=== PATIENT | female | born 1985 | race Caucasian/White ===

== ENCOUNTER 2016-09-21 22:16 | Emergency (ER) | payer BC, OTHER ==
[~2016-09-21] VITALS: Ht 160 cm; Wt 87.1 kg
[~2016-09-21 22:16] MED LIST: PRENTAB26 PO
[2016-09-21 22:19] VITALS: TEMP 36.7; Ht 160 cm; Wt 87.1 kg
[2016-09-21] MEDS ORDERED: ACETAMINOPHEN 500 MG TAB PO STA (22:30)
[2016-09-21] MEDS ORDERED: IBUPROFEN 600 MG TAB PO STA (22:30)
--- NOTE | 2016-09-21 23:01 | DIAGNOSTIC IMAGING REPORT ---
LEFT SHOULDER 3 VIEWS HISTORY: left shoulder injury COMPARISON: None. FINDINGS: There is no fracture or dislocation. Soft tissues are unremarkable. No radiopaque foreign bodies. IMPRESSION: No fractures. Electronically signed by: Jeff Kaplan M.D. 09/21/2016 11:00 PM Dictated Date/Time: 09/21/2016 10:58 PM
--- NOTE | 2016-09-21 23:09 | EMERGENCY ROOM VISIT NOTE ---
ED Visit Note First contact with patient: 22:25 CHIEF COMPLAINT: Shoulder pain HISTORY OF PRESENT ILLNESS: This 31 year old female patient presents to the emergency department complaining of pain in the left shoulder that began today. The patient is employed at a local [employer], and states that a resident was going from a seated to a standing position. The resident began to fall backwards, and the patient was able to prevent injury to the resident. In doing so she felt a pulling and tightness into her left shoulder that has slowly worsened over the past several hours. There is some limitation of motion of the arm because of the pain. The pain is moderate, constant and increases with motion of the hand and arm. The patient states the pain is dull and 7/10. The patient has taken nothing for relief of the pain. No previous significant previous shoulder disease or injury. No numbness or tingling. No neck and no back pain. No chest pain or shortness of breath. No abdominal pain or nausea/vomiting. No cough. REVIEW OF SYSTEMS: A 6 system review of systems was performed with positives and pertinent negatives in the HPI. ALLERGIES: Penicillin MEDICATIONS: See EMR PMH: See EMR SOCIAL HISTORY: Lives locally and employed PHYSICAL EXAM: Vital Signs: Reviewed nurse's notes, vital signs stable. GENERAL : White female, in no acute distress, but appears to be in pain, well-developed , well-nourished. MUSCULOSKELETAL: There is no deformity of the left shoulder and there are no cassie deformities noted. There is no sulcus sign. There is tenderness over the supraspinatus into the lateral deltoid. The patient's range of motion is limited to abduction and elevation above the head. Supraspinatus strength 3/5. There is no clavicle tenderness. No tenderness of the humerus, elbow, wrist, or hand. Early Childhood Associate strength 5/5. Radial pulse 2+. NECK: No tenderness to palpation over the cervical spine. HEART: Regular rate and rhythm without murmurs gallops or rubs. LUNGS: Clear to auscultation bilaterally without wheezes, rales or rhonchi. No accessory muscle use. No retractions. NEURO: The patient is alert and oriented to person, place, and time. Normal sensation to light and sharp touch. Capillary refill less than 2 seconds. LEFT SHOULDER 3 VIEWS HISTORY: left shoulder injury COMPARISON: None. FINDINGS: There is no fracture or dislocation. Soft tissues are unremarkable. No radiopaque foreign bodies. IMPRESSION: No fractures. EMERGENCY DEPARTMENT COURSE: Physical exam and history were performed. Nursing notes and EMR were reviewed. The patient appears to have injured her left shoulder while at work's evening. X-rays were obtained and does not show evidence of acute fracture or dislocation. I suspect a sprain/strain type of injury. Her injury occurred at work, and I recommended that she follow with Workmen's Compensation for further care and management. She will be given a home pack of Vicodin and instructed on conservative measures otherwise. She was invited back to the emergency department with any new, worsening, or concerning symptoms. Problem List Medical Problems: (1) Migraine Status: Chronic Current/Historical Medications No Active Prescriptions or Reported Meds Allergies Coded Allergies: Penicillins (Verified Allergy, Unknown, 03/22/16) Vital Signs Date Time Temp Pulse Resp B/P (MAP) Pulse Ox O2 Delivery O2 Flow Rate FiO2 09/21/16 22:19 36.7 76 18 144/83 100 Room Air Medications Administered Medications (Trade) Dose Ordered Sig/Ishan Route Start Time Stop Time Status Last Admin Dose Admin Acetaminophen (Tylenol Tab) 1,000 mg NOW STAT PO 09/21/16 22:30 09/21/16 22:31 DC 09/21/16 22:41 1,000 MG Ibuprofen (Motrin Tab) 600 mg NOW STAT PO 09/21/16 22:30 09/21/16 22:31 DC 09/21/16 22:41 600 MG Departure Information Impression Primary Impression: Injury of left shoulder Dispostion Home / Self-Care Condition GOOD Prescriptions No Active Prescriptions or Reported Meds Forms HOME CARE DOCUMENTATION FORM, IMPORTANT VISIT INFORMATION Patient Instructions [facility] Additional Instructions You were seen and evaluated today on an emergency basis only. This is not a substitute for, or an effort to provide, complete comprehensive medical care. It is not possible to recognize and treat all injuries or illnesses in a single emergency department visit. For this reason it is recommended that you followup with Workmen's Compensation this week for ongoing care and evaluation. For baseline pain relief you may alternate ibuprofen and acetaminophen every 4 hours for pain control. Take 600 mg ibuprofen (Advil) and then 4 hours later take 1000 mg acetaminophen (Tylenol). Do not take more than 3000 mg acetaminophen in a single day. [place] (hydrocodone/acetaminophen) 5/325 mg every 6 hours as needed for worsening breakthrough pain. Do not drink or drive on [place]. This medication will likely make you tired. Do not take [place] and Tylenol at the same time as both contain acetaminophen. [place] may cause constipation. You may wish to take an [id number] stool softener like Colace if this occurs. You are welcome to return to the emergency department anytime with new, worsening, or concerning symptoms.
[2016-09-21] MEDS ORDERED: NORCO 5/325MG HOME PACK PO ONE (23:15)
[2016-09-21 23:25] VITALS: BP 121/86; PULSE 57; O2SAT 100
[2017-02-02] MEDS ORDERED: AZIT-57 PO (23:05)
== END 2016-09-21 23:26 | disposition home or self-care (01) ==
LOC: C.EDB 22:17 → C.EDA 23:26
DX: S49.92XA Unspecified injury of left shoulder and upper arm, initial encounter (principal); X50.1XXA Overexertion from prolonged static or awkward postures, initial encounter; Y92.129 Unspecified place in nursing home as the place of occurrence of the external cause; Y99.0 Civilian activity done for income or pay

== ENCOUNTER 2017-02-02 18:57 | Emergency (ER) | payer BC, OTHER ==
[~2017-02-02] VITALS: Ht 160 cm; Wt 85.4 kg
[2017-02-02 19:11] VITALS: TEMP 38.1; Ht 160 cm; Wt 85.4 kg
[2017-02-02] MEDS ORDERED: SODIUM CHLORIDE 0.9% 1000ML 2,000 ML IV STA (19:28)
[2017-02-02] MEDS ORDERED: KETOROLAC TROMETHAMINE 30 MG/ML VIAL IV STA (19:28)
[2017-02-02 20:12] VITALS: O2SAT 99
[2017-02-02 20:30] LABS: PREG INTERNAL NEGATIVE QC NEG CLEAR BACKGROUND; PREG INTERNAL POSITIVE QC POS CONTROL LINE
[2017-02-02 20:32] LABS: URINE APPEARANCE CLOUDY (CLEAR); URINE COLOR DK YELLOW; URINE EPITHELIAL CELL AUTO >30 /lpf (0-5); URINE NITRITE NEG (NEG); URINE SPECIFIC GRAVITY 1.033 (1.000-1.030); UROBILINOGEN NEG (NEG)
[2017-02-02 20:37] LABS: MANUAL MICROSCOPIC REQUIRED? NO; REVIEW REQ? YES; URINE BILIRUBIN NEG (NEG)
[2017-02-02 20:44] LABS: URINE MUCUS PRESENT (NONE PRSENT)
[2017-02-02 21:06] LABS: HEMATOCRIT 31.6 % (37-47); MEAN CELL VOLUME 74.7 fL (80-100); MEAN CORPUSCULAR HEMOGLOBIN 23.9 pg (25-34); MEAN PLATELET VOLUME 10.4 fL (7.4-10.4); PLATELET COUNT 202 K/uL (130-400); RED BLOOD COUNT 4.23 M/uL (4.2-5.4); WHITE BLOOD COUNT 6.71 K/uL (4.8-10.8)
--- NOTE | 2017-02-02 21:18 | DIAGNOSTIC IMAGING REPORT ---
CHEST 2 VIEWS ROUTINE HISTORY: 31 years-old Female Evaluate Fever/Sepsis acute fever and sepsis. COMPARISON: None available TECHNIQUE: Frontal and lateral views of the chest FINDINGS: Cardiac silhouette is within normal limits. No pneumothorax or pleural effusion. There are a few patchy opacities present within the right midlung which on the lateral projection appear to be located within the right middle lobe. Left lung appears generally clear. The bones are grossly intact. Soft tissues are unremarkable. IMPRESSION: Patchy alveolar opacities of the right midlung are suspicious for bronchopneumonia. The above report was generated using voice recognition software. It may contain grammatical, syntax or spelling errors. Electronically signed by: Albino Jean M.D. 02/02/2017 9:17 PM Dictated Date/Time: 02/02/2017 9:15 PM
[2017-02-02 21:26] LABS: ANTI-STREP O SCR: 5YRS OR > NEG IU/ml (<200 IU); BUN/CREATININE RATIO 13.6 (10-20); C-REACTIVE PROTEIN 9.82 mg/dl (0-0.29); CALCIUM 7.9 mg/dl (8.5-10.1); CREATININE 0.72 mg/dl (0.60-1.20); POTASSIUM 3.2 mmol/L (3.5-5.1)
[2017-02-02 21:28] LABS: BASO % 0.6 %; BASO ABS # 0.04 K/uL (0-0.2); COMPLETE YES; EOS % 0.4 %; IG% 0.1 %; LYMPH ABS # 1.68 K/uL (1.2-3.4); MONO % 7.9 %
--- NOTE | 2017-02-02 21:35 | EMERGENCY ROOM VISIT NOTE ---
History First contact with patient: 19:18 Chief Complaint: ILLNESS Stated Complaint: FEVER,CHILLS, COUGH, JOINT PAIN History of Present Illness The patient is a 31 year old female who presents to the Emergency Room with complaints of fevers/chills and a cough that started yesterday. She has also had some associated fatigue, myalgias, and bilateral hip and knee joint pain started today. Her fevers have been as high as 102, she has taken Tylenol and Motrin for her fevers yesterday, but has not had any medication today. She states she has not been eating or drinking much today because of not feeling well, and states her urine has been dark. She denies any known sick contacts. She denies any recent tick bites or suspected tick exposure. She denies any headaches, neck pain or stiffness, chest pain, shortness of breath, nausea or vomiting, abdominal pain, back pain, diarrhea, urinary symptoms, rash. Review of Systems A complete 10 point review of systems was reviewed with the patient with pertinent positives and negatives as per history of present illness. All else were negative. Past Medical/Surgical History Medical Problems: (1) 32 weeks gestation of (2) Abdominal trauma (3) Elevated blood pressure affecting in third trimester, antepartum (4) History of pre-eclampsia in prior , currently in third trimester (5) Migraine (6) Preeclampsia complicating hypertension (7) with 35 completed weeks gestation (8) Prior complicated by PIH, antepartum Social History Smoking Status: Never Smoker Alcohol Use: none Drug Use: none Marital Status: Occupation Status: employed Current/Historical Medications Scheduled Azithromycin (Azithromycin), 1 TAB PO ivette Allergies Coded Allergies: Penicillins (Verified Allergy, Unknown, 02/02/17) Physical Exam Vital Signs Date Time Temp Pulse Resp B/P (MAP) Pulse Ox O2 Delivery O2 Flow Rate FiO2 02/02/17 23:05 78 20 118/73 98 Room Air 02/02/17 22:40 88 26 111/72 99 Room Air 02/02/17 20:49 83 27 120/82 98 Room Air 02/02/17 20:29 84 02/02/17 20:12 99 Room Air 02/02/17 19:11 38.1 111 20 120/85 97 Room Air Physical Exam CONSTITUTIONAL: No acute distress, but appears uncomfortable. Moderately dehydrated. Alert and oriented X 4 with normal affect. HEENT: Normocephalic, atraumatic. Pupils equal, round and reactive to light, EOMI. TMs normal. Pharynx normal. Dry mucous membranes. NECK: Supple, full active range of motion without discomfort. RESPIRATORY: Clear to auscultation bilaterally with no wheezing, crackles, rhonchi or stridor. Equal expansion bilaterally. CARDIOVASCULAR: Tachycardic. Regular rhythm with no murmurs, rubs or gallops. Normal peripheral perfusion. No edema. GASTROINTESTINAL: Soft, nontender, nondistended. Bowel sounds present in all quadrants. MUSCULOSKELETAL: Full range of motion of all joints without discomfort. No joint effusions, erythema or warmth over the joints. INTEGUMENTARY: No rash or other significant dermatologic conditions noted. NEUROLOGIC: Cranial nerves II-XII grossly intact. No focal neurologic deficits noted. Medical Decision & Procedures ER Provider Diagnostic Interpretation: CHEST 2 VIEWS ROUTINE HISTORY: 31 years-old Female Evaluate Fever/Sepsis acute fever and sepsis. COMPARISON: None available TECHNIQUE: Frontal and lateral views of the chest FINDINGS: Cardiac silhouette is within normal limits. No pneumothorax or pleural effusion. There are a few patchy opacities present within the right midlung which on the lateral projection appear to be located within the right middle lobe. Left lung appears generally clear. The bones are grossly intact. Soft tissues are unremarkable. IMPRESSION: Patchy alveolar opacities of the right midlung are suspicious for bronchopneumonia. Laboratory Results 02/02/17 20:55 Red Blood Count 4.23, Mean Corpuscular Volume 74.7, Mean Corpuscular Hemoglobin 23.9, Mean Corpuscular Hemoglobin Concent 32.0, Mean Platelet Volume 10.4, Neutrophils (%) (Auto) 66.0, Lymphocytes (%) (Auto) 25.0, Monocytes (%) (Auto) 7.9, Eosinophils (%) (Auto) 0.4, Basophils (%) (Auto) 0.6, Neutrophils # (Auto) 4.42, Lymphocytes # (Auto) 1.68, Monocytes # (Auto) 0.53, Eosinophils # (Auto) 0.03, Basophils # (Auto) 0.04 02/02/17 20:55 Test 02/02/17 20:15 02/02/17 20:55 Urine Color DK YELLOW Urine Appearance CLOUDY (CLEAR) Urine pH 5.0 (4.5-7.5) Urine Specific [place] 1.033 (1.000-1.030) Urine Protein 2+ (NEG) Urine Glucose (UA) NEG (NEG) Urine Ketones 3+ (NEG) Urine Occult Blood 3+ (NEG) Urine Nitrite NEG (NEG) Urine Bilirubin NEG (NEG) Urine Urobilinogen NEG (NEG) Urine Leukocyte Esterase SMALL (NEG) Urine WBC (Auto) >30 /hpf (0-5) Urine RBC (Auto) >30 /hpf (0-4) Urine Hyaline Casts (Auto) 0 /lpf (0-5) Urine Epithelial Cells (Auto) >30 /lpf (0-5) Urine Bacteria (Auto) 2+ (NEG) Urine Pathogenic Casts /lpf (0) Urine Mucus PRESENT (NONE PRSENT) Urine Test NEG (NEG) Influenza Type A (RT-PCR) Neg for Influ A (NEG) Influenza Type A Antigen Neg for Influ A (NEG) Influenza Type B Antigen Neg for Influ B (NEG) Influenza Type B (RT-PCR) Neg for Influ B (NEG) White Blood Count 6.71 K/uL (4.8-10.8) Red Blood Count 4.23 M/uL (4.2-5.4) Hemoglobin 10.1 g/dL (12.0-16.0) Hematocrit 31.6 % (37-47) Mean Corpuscular Volume 74.7 fL (80-100) Mean Corpuscular Hemoglobin 23.9 pg (25-34) Mean Corpuscular Hemoglobin Concent 32.0 g/dl (32-36) Platelet Count 202 K/uL (130-400) Mean Platelet Volume 10.4 fL (7.4-10.4) Neutrophils (%) (Auto) 66.0 % Lymphocytes (%) (Auto) 25.0 % Monocytes (%) (Auto) 7.9 % Eosinophils (%) (Auto) 0.4 % Basophils (%) (Auto) 0.6 % Neutrophils # (Auto) 4.42 K/uL (1.4-6.5) Lymphocytes # (Auto) 1.68 K/uL (1.2-3.4) Monocytes # (Auto) 0.53 K/uL (0.11-0.59) Eosinophils # (Auto) 0.03 K/uL (0-0.5) Basophils # (Auto) 0.04 K/uL (0-0.2) RDW Standard Deviation 46.4 fL (36.4-46.3) RDW Coefficient of Variation 16.8 % (11.5-14.5) Immature Granulocyte % (Auto) 0.1 % Immature Granulocyte # (Auto) 0.01 K/uL (0.00-0.02) Erythrocyte Sedimentation Rate 56 mm/hr (0-21) Anion Gap 8.0 mmol/L (3-11) Est Creatinine Clear Calc Drug Dose 119.4 ml/min Estimated GFR () 131.2 Estimated GFR (Non- 113.2 BUN/Creatinine Ratio 13.6 (10-20) Lactic Acid Level 1.0 mmol/L (0.4-2.0) Calcium Level 7.9 mg/dl (8.5-10.1) Total Bilirubin 1.2 mg/dl (0.2-1) Direct Bilirubin 0.2 mg/dl (0-0.2) Aspartate Amino Transf (AST/SGOT) 8 U/L (15-37) Alanine Aminotransferase (ALT/SGPT) 11 U/L (12-78) Alkaline Phosphatase 80 U/L (45-117) Total Creatine Kinase 109 U/L (26-192) C-Reactive Protein 9.82 mg/dl (0-0.29) Total Protein 7.1 gm/dl (6.4-8.2) Albumin 3.0 gm/dl (3.4-5.0) Lyme Disease IgG Antibody NEG (NEG) Lyme Disease IgM Antibody NEG (NEG) Anti-Streptolysin O Antibody Screen NEG IU/ml (<200 IU) Medications Administered Medications (Trade) Dose Ordered Sig/Ishan Route Start Time Stop Time Status Last Admin Dose Admin Sodium Chloride 2,000 ml @ 999 mls/hr Q2H1M STAT IV 02/02/17 19:28 02/02/17 21:28 DC 02/02/17 19:28 999 MLS/HR Ketorolac Tromethamine (Toradol Inj) 15 mg NOW STAT IV 02/02/17 19:28 02/02/17 19:31 DC 02/02/17 20:04 15 MG Ceftriaxone Sodium (Rocephin Inj) 1 gm NOW STAT IV 02/02/17 21:40 02/02/17 21:41 DC 02/02/17 21:56 1 GM Azithromycin (Zithromax Tab) 500 mg NOW ONCE PO 02/02/17 21:45 02/02/17 21:46 DC 02/02/17 21:55 500 MG Medical Decision CC: Patient presenting with complaint of fever/chills, cough, joint pain Interpretation of Labs: No leukocytosis, mild anemia, mild hypokalemia, no other significant electrolyte abnormalities, normal renal function, elevated inflammatory markers. CK normal. Negative influenza, negative Lyme, negative ASO. UA consistent with moderate dehydration, suspect contamination and not a UTI. Differential Diagnosis: Includes, but not limited to pneumonia, bronchitis, viral URI, influenza, tickborne illness, fever, myalgias, myositis, dehydration , rhabdomyolysis, post streptococcal infection, UTI, among others. Medication Reconciliation: I attest that I have personally reviewed the patient' s current medication list. Vital signs review: I reviewed the patient's vital signs and interpret them as follows: T: Afebrile; BP: Normotensive; HR: Tachycardic; RR: Within normal limits; Pulse Ox: Within normal limits on room air. Blood pressure screening: The patient was found to have normal blood pressure on screening and does not require follow-up for repeat blood pressure check. Summary: Patient was evaluated at bedside, history of physical exam performed. Patient is alert and oriented, no acute distress but does appear to be uncomfortable. She is resting calmly in the stretcher. She is febrile and tachycardic on initial vital signs, she appears moderately dehydrated clinically. IV fluid bolus 2 ordered for hydration, IV Toradol for her fever and myalgias. Orders were placed at bedside for labs, UA and culture, urine , blood cultures, lactic acid, chest x-ray to evaluate for source of infection. Patient discussed with Dr. Foster, who agrees with my assessment and plan. Labs reviewed as above, no significant abnormalities. She does appear to be moderately dehydrated. Chest x-ray concerning for developing right-sided pneumonia, IV ceftriaxone and 500 mg PO azithromycin given in the ED. Patient reassessed multiple times throughout ED stay, she reports she is feeling much better, and she has had urine output while in the ED. Patient was updated on all results and plan for discharge, she is comfortable with this plan. Rx for azithromycin is provided. Patient was instructed to follow closely with her PCP, and was also given return precautions should her symptoms worsen in any way, she verbalized understanding. Patient was discharged home in stable condition and ambulatory. Impression Primary Impression: Pneumonia Departure Information Dispostion Home / Self-Care Condition GOOD Prescriptions Azithromycin (Azithromycin) 250 Mg Tab 1 TAB PO ivette for 4 Days, #4 TBS Prov: Mackenzie MalagonESTHER Stratton 02/02/17 Referrals No Doctor, Assigned (PCP) Patient Instructions ED Pneumonia Adult, [facility] Additional Instructions You have been treated in the Emergency Department today for Pneumonia and Dehydration. Laboratory results have ruled out any emergent reasons for further evaluation or admission. You were prescribed azithromycin to be taken once a day for 4 days starting tomorrow. This is an antibiotic to treat your pneumonia. All antibiotics have the potential to cause diarrhea. Stop this medication and contact a medical provider if you were to develop any significant adverse side effects including: wheezing, shortness of breath, passing out, vomiting, or a diffuse rash. Always take antibiotics as directed and COMPLETE the ENTIRE course regardless of the improvement of your symptoms. For fevers and pain you may take the following [id number] medications: Tylenol 1000 mg every 8 hours as needed. Ibuprofen 800 mg every 8 hours as needed. You may alternate between these two medications every 4 hours for optimum pain and fever management. It is ESSENTIAL that you maintain adequate hydration with oral fluids! Some suggestions include: - Water is the IDEAL replacement for lost fluids. You should initially sip at the water to help facilitate increased intestinal absorption rate and to decrease the possibility of nausea/vomiting. - Carbohydrate/Electrolyte-Containing Drinks (i.e. Gatorade, Powerade, Pedialyte). All of these are good choices, but it is important to remember that all of these drinks contain a high concentration of sugar. - Popsicles, ice chips, and fruit juices are all other options. - My FAVORITE dehydration remedy is to mix a 1:1 solution of bottled Gatorade with bottled water. This dilution allows for a palatable flavor with added benefit of a reduction in the amount of sugar consumption. As with all Emergency Department visits, you should follow-up with your Primary Care Provider in 2-3 days for reevaluation. Return to the Emergency Department if your current symptoms worsen despite treatment course outlined above, or if you develop any of the following symptoms : Shortness of breath, chest pain, coughing up blood, persistent fevers after 24 hours of antibiotics, severe dizziness or passing out, or decreased urination. Work Instructions Return To Work: 2 days Problem Qualifiers Primary Impression: Pneumonia Pneumonia type: due to unspecified organism Laterality: right Lung location : middle lobe of lung Qualified Codes: J18.1 - Lobar pneumonia, unspecified organism
[2017-02-02] MEDS ORDERED: CEFTRIAXONE SOD INJ 1 GM ADDVIAL IV STA (21:40)
[2017-02-02] MEDS ORDERED: AZITHROMYCIN 250 MG TAB PO ONE (21:45)
[2017-02-02 21:57] LABS: LYME DISEASE AB IGG NEG (NEG); LYME DISEASE AB IGM NEG (NEG)
[2017-02-02 23:05] VITALS: BP 118/73; PULSE 78; O2SAT 98
[2017-02-02] MEDS ORDERED: ZTHM250 PO (23:05)
[2017-02-02 23:46] LABS: INFLUENZA A PCR Neg for Influ A (NEG); INFLUENZA B PCR Neg for Influ B (NEG)
== END 2017-02-02 23:28 | disposition home or self-care (01) ==
LOC: C.EDB 18:58
DX: J18.1 Lobar pneumonia, unspecified organism (principal); R00.0 Tachycardia, unspecified; E86.0 Dehydration

== ENCOUNTER 2017-03-28 19:48 | Emergency (ER) | payer OTHER, BC ==
[~2017-03-28] VITALS: Ht 160 cm; Wt 85.2 kg
[~2017-03-28 19:48] MED LIST changes: +AZIT-57 PO; -PRENTAB26 PO
[2017-03-28 19:56] VITALS: TEMP 36.9; Ht 160 cm; Wt 85.2 kg
--- NOTE | 2017-03-28 20:50 | DIAGNOSTIC IMAGING REPORT ---
R SHOULDER MIN 2 VIEWS ROUTINE CLINICAL HISTORY: Right shoulder pain following injury. COMPARISON: Right shoulder radiographs November 26, 2014. FINDINGS: Alignment of the right shoulder is anatomic. No acute fracture is identified. Joint spaces are preserved. IMPRESSION: No fracture or dislocation of the right shoulder. Electronically signed by: Donald Magana M.D. 03/28/2017 8:49 PM Dictated Date/Time: 03/28/2017 8:48 PM
--- NOTE | 2017-03-28 20:55 | EMERGENCY ROOM VISIT NOTE ---
History First contact with patient: 20:00 Chief Complaint: SHOULDER PAIN Stated Complaint: RT SHOULDER PULLED MUSCLE-WC History of Present Illness The patient is a 31 year old female who presents to the Emergency Room private vehicle with complaints of "Rt shoulder pulled muscle-WC". The patient states that earlier today while at work a patient was being moved and fell into her causing pain just behind her right scapula. She notes pain with movement of the right shoulder. She rates the pain as a 4/10 and notes that it is sharp with movement. She states initially she had some tingling radiating to her hand from the shoulder but this has resolved and only lasted a few minutes. She denies any chance of and declines pain medication here. Review of Systems A complete 6-point Review of Systems was discussed with the patient, with pertinent positives and negatives listed in the History of Present Illness. All remaining Review of Systems questions can be considered negative unless otherwise specified. Past Medical/Surgical History Medical Problems: (1) 32 weeks gestation of (2) Abdominal trauma (3) Elevated blood pressure affecting in third trimester, antepartum (4) History of pre-eclampsia in prior , currently in third trimester (5) Migraine (6) Preeclampsia complicating hypertension (7) with 35 completed weeks gestation (8) Prior complicated by PIH, antepartum Social History Smoking Status: Never Smoker Alcohol Use: none Drug Use: none Marital Status: Occupation Status: employed Current/Historical Medications No Active Prescriptions or Reported Meds Physical Exam Vital Signs Date Time Temp Pulse Resp B/P (MAP) Pulse Ox O2 Delivery O2 Flow Rate FiO2 03/28/17 21:19 69 14 129/88 100 03/28/17 19:56 36.9 69 16 151/94 100 Room Air Physical Exam VITAL SIGNS - Vital signs and nursing notes were reviewed. Stable. Hypertensive. GENERAL -31-year-old female appearing her stated age who is in no acute distress. Communicates well with provider and answers questions appropriately. SKIN - Without rashes. No petechial rashes. HEAD - NC/AT. NECK - Neck with FROM. No C-spine tenderness. MUSCULOSKELETAL: Tenderness to palpation overlying the musculature around the right scapula extending to the right shoulder region. No bony tenderness. ABDOMEN - Abdominal contour [] without pulsations or visible masses. BS normoactive all four quadrants. No tenderness, palpable masses, hepatosplenomegaly, or ascites noted. EXTREMITIES - Full range of motion of the right upper extremity noted. +5/5 strength noted in UE/LE bilaterally. Medical Decision & Procedures ER Provider Diagnostic Interpretation: R SHOULDER MIN 2 VIEWS ROUTINE CLINICAL HISTORY: Right shoulder pain following injury. COMPARISON: Right shoulder radiographs November 26, 2014. FINDINGS: Alignment of the right shoulder is anatomic. No acute fracture is identified. Joint spaces are preserved. IMPRESSION: No fracture or dislocation of the right shoulder. Electronically signed by: Donald Magana M.D. 03/28/2017 8:49 PM Dictated Date/Time: 03/28/2017 8:48 PM Medical Decision Patient was seen and evaluated as above. She presents with today with right scapular/shoulder pain. This was status post incident while at work. There is no evidence of bony injury. X-ray verifies this. I suspect musculoskeletal strain. She will be given a sling to immobilize with close follow-up with worker's comp. She declines pain medication. She was educated upon management , educated upon worrisome symptoms which to return, had questions as per discharge, and was discharged home in good condition. In the evaluation and treatment of this patient, the following differential diagnoses were considered: Shoulder Contusion, Shoulder Fracture, Shoulder Dislocation, Thoracic Outlet Syndrome, Adhesive Capsulitis, Rotator Cuff Tear, Proximal Clavicle Head Fracture, Apical Pneumonia, Pneumothorax, Hemothorax, or TB. Impression Primary Impression: Muscle strain, shoulder region Departure Information Dispostion Home / Self-Care Condition GOOD Prescriptions No Active Prescriptions or Reported Meds Referrals No Doctor, Assigned (PCP) Kris Sanon M.D. Patient Instructions My [facility] Additional Instructions You have been treated in the Emergency Department for Shoulder Pain. For pain control, you can use the following [id number]-dhz-tycufoa medicines (if >12 yo): - Regular strength (325mg/tab) Tylenol (acetaminophen) 2 tabs every 4-6 hours as needed. Do not exceed 12 tablets in a 24 hour period. Avoid taking more than 3 grams (3000 mg) of Tylenol per day. This includes any other sources of acetaminophen you may take on a regular basis. - Regular strength (200 mg/tab) Advil (ibuprofen) 1-2 tabs every 4-6 hours as needed. Do not exceed a dose of 3200 mg per day. If this is a recent injury (<24 hrs), ice can be applied to the area of pain for the first 3 days to help decrease pain and inflammation. You have been provided the number for an Orthopaedic Surgeon. You should call this number as soon as possible to establish a follow-up visit from today's Emergency Department visit. Please follow with your approved work individual. Keep the shoulder brace/sling in place until evaluated by Orthopedics. Continue to perform range of motion exercises several times per day to help prevent the development of a "frozen shoulder". Return to the Emergency Department if your current symptoms worsen despite treatment course outlined above, or if you develop any of the following symptoms : intractable pain despite aforementioned treatment course or new onset of numbness or tingling of the arm.
[2017-03-28 21:19] VITALS: BP 129/88; PULSE 69; O2SAT 100
== END 2017-03-28 21:11 | disposition home or self-care (01) ==
LOC: C.EDB 19:49 → C.EDD 21:11
DX: S46.811A Strain of other muscles, fascia and tendons at shoulder and upper arm level, right arm, initial encounter (principal); W51.XXXA Accidental striking against or bumped into by another person, initial encounter; Y99.0 Civilian activity done for income or pay; Y92.89 Other specified places as the place of occurrence of the external cause; Y93.89 Activity, other specified